=== PATIENT | male | born 1975 | race African-American/Black ===

== ENCOUNTER 2020-11-09 11:09 | Emergency (ER) | payer OTHER ==
[2020-11-09 11:23] VITALS: BP 168/116; PULSE 109; TEMP 98.4; BMI 29.9
[2020-11-09] MEDS ORDERED: ACETAMINOPHEN 325 MG TABLET (FP) PO ONE (11:49)
[2020-11-09] MEDS ORDERED: ACETAMINOPHEN 325 MG TABLET (FP) ONE (12:04)
== END 2020-11-09 12:12 | disposition home or self-care (01) ==
LOC: FER 11:09
DX: R07.81 Pleurodynia (principal)
CPT/HCPCS: 99285-25